=== PATIENT | male | born 1985 | race Native Hawaiian/Other Pacific Islander ===

== ENCOUNTER → 2019-04-05 | Outpatient (CLI) | payer OTHER ==
[2019-04-05 15:41] VITALS: BMI 42.5
== END | disposition home or self-care (01) ==
LOC: DBWHC3 14:09
PROVIDERS: ATTEND Physician Assistant
DX: E66.9 Obesity, unspecified (principal); Z68.41 Body mass index [BMI] 40.0-44.9, adult
CPT/HCPCS: 97802

== ENCOUNTER → 2019-04-17 | Outpatient (CLI) | payer OTHER ==
--- NOTE | 2019-04-17 15:23 | CONS ---
CONSULTATION Consultation note for sleep apnea. This is a 33-year-old male patient who is an male, who lives a [place]. The patient was getting very sleepy, tired and fatigued during the day. In fact, as he was going to [place], he had an episode where he had a sleep attack and he fell asleep and he was taken to the hospital and further investigation was not done; however, at the time of discharge, the patient was given an APAP unit which he has been using since discharge. Official documentation of sleep apnea has not been established at this point in time. Never the less, the clinical suspicion was high as the patient has typical symptoms of loud snoring, sleep fragmentation, frequent nocturnal arousal, excessive daytime hypersomnia or sleepiness. Based on clinical grounds, the patient goes to bed around 11 p.m., wakes up 6:30 a.m. in the morning. On weekends, he goes to bed around 2 am, gets up 11 am in the morning. Despite all this, he feels drowsy, tired, fatigued, and sleepy with an Elnora score of 8. Since he has used his APAP he has felt better and he is feeling much improved to the point where he is not having any major fatigue or tiredness or sleepiness during the day. I checked his compliancy data and his APAP is being averaged around 6.3 hours per night and his AHI while on treatment is down to 4.2, he is at a minimum pressure of 6 and a maximum pressure of 20. He has an excellent mask fit as the patient is using a Simplus full-face mask. He is also seeking alternatives. His current Elnora score is down to 6. No history of head trauma. No history of sleep paralysis and initial cataplexy. No history of meningitis. No substance abuse. No other complaints otherwise for now. PAST MEDICAL HISTORY: 1. Obstructive sleep apnea clinically suspected, currently under investigation. He is receiving treatment. 2. Hypertension. 3. Obesity. SURGICAL HISTORY: None. DRUG ALLERGIES: PENICILLIN. OUTPATIENT MEDICATIONS INCLUDE: Cardizem 240 mg p.o. daily and hydrochlorothiazide 50 mg p.o. daily. SOCIAL HISTORY: The patient is a nonsmoker. No history of alcohol. No history of IV drugs. FAMILY HISTORY: Not known, the patient's biologic parents are not known. REVIEW OF SYSTEMS: A 14-point review of system was done. There was 50 pounds weight gain over the past 10 years. There is positive history of snoring, witnessed apneas, waking up gasping for air and nocturia. Also had issues with memory and concentration. No history of any motor vehicle accident because of feeling drowsy or sleepy. No stroke, no focal neurological deficits. No seizure activity. No headaches at this point in time. He prefers to sleep on his side. He takes naps during the day. BP is 140/82, pulse 84, respirations 16, temperature 97.5, saturation 93% on room air. Height is 5, 8, weight is 299. Elnora score is at 6 and BMI is 45.4 with neck size 19 inches. GENERAL APPEARANCE: Obese, calm comfortable. HEAD: Atraumatic, normocephalic. Neck is Mallampati class IV. There is no goiter or neck mass. LUNGS: Clear to auscultation. HEART: Heart sounds are regular rate and rhythm. Normal S1, S2. No murmurs. ABDOMEN: Soft, nontender. No organomegaly. EXTREMITIES: No cyanosis or clubbing. NEUROLOGIC: Alert x3. No focal neurological deficits. PSYCHIATRIC: Negative for anxiety or depression. IMPRESSION: 1. Hypersomnia, improved with APAP therapy. High suspicion for obstructive sleep apnea. Also official sleep study was not done. Never the less, the patient was suspected of obstructive sleep apnea, treated and he has improved and his Elnora score is down to 6 at this point in time, without any sleep attacks or hypersomnia or sleepiness. Compliance data was checked, numbers are looking good. 2. Obesity. 3. Loud snoring with witnessed apneas and high suspicion for obstructive sleep apnea. 4. Chronic hypersomnia improved with APAP therapy. 5. Obesity with a body mass index of 45.4. 6. Hypertension. PLAN: 1. Will set up this patient for a screening polysomnogram to established diagnosis of obstructive sleep apnea. Overall clinical suspicion is very high and the patient responded to treatment nicely. Documentation of the disease needs to be done via polysomnogram to justify ongoing treatment. 2. Encourage weight loss. 3. Introduced two different masks for this patient which was the Air Fit N-30 medium size and the Dream Wear nose mask. He like both of these masks and he was going to give him a consideration. He will be encouraged to lose weight. He will be asked to see me back in followup after the polysomnogram for evaluation. I think it is safe for this patient to drive as long as he is not having any major hypersomnia or sleepiness and he is demonstrating excellent compliancy on his APAP unit. Will continue to follow. CHI / RACHID: [id number] /
== END | disposition home or self-care (01) ==
LOC: SLEEP 10:29
PROVIDERS: ATTEND Internal Medicine Critical Care Medicine
DX: R06.83 Snoring (principal); E66.9 Obesity, unspecified; Z68.42 Body mass index [BMI] 45.0-49.9, adult; I10 Essential (primary) hypertension; R53.83 Other fatigue; Z79.899 Other long term (current) drug therapy; Z88.0 Allergy status to penicillin
CPT/HCPCS: 99211